=== PATIENT | female | born 1975 | race Two or more races ===

== ENCOUNTER 2023-12-25 07:19 | Inpatient (IN) | payer OTHER ==
[2023-12-23 10:28] LABS: HEMATOCRIT 37.4 % (36.0-45.00); HEMOGLOBIN 12.5 g/dL (12.0-15.00); MEAN CELL VOLUME 83.9 fL (80.00-100.00); MEAN CORPUSCULAR HEMOGLOBIN 28.1 pg (27.00-32.0); MEAN CORPUSCULAR HGB CONC 33.5 g/dl (32.0-36.0); PLATELET COUNT 243 K/uL (150-450); RED BLOOD COUNT 4.46 M/uL (4.00-6.00); RED CELL DISTRIBUTION WIDTH 14.1 % (11.5-14.5)
[2023-12-23 10:53] LABS: PH,URINE 6.5 (5.0-8.0); URINE APPEARANCE Clear; URINE BILIRRUBIN Negative (NEGATIVE); URINE BLOOD Negative; URINE COLOR Yellow; URINE GLUCOSE Negative (NEGATIVE); URINE LEUKOCYTE Negative; URINE NITRATE Negative; URINE PROTEIN Negative (NEGATIVE); URINE UROBILINOGEN 0.2 E.U./dl
[2023-12-23 10:54] LABS: URINE EPITHELIAL CELLS 10.3 uL (0.0-38.8); URINE RBC 9.9 uL (0.0-20.8)
[2023-12-23 11:03] LABS: INR 1.04; PARTIAL THROMBOPLASTIN TIME 31.2 SECONDS (22.0-34.0); PROTHROMBIN TIME 10.9 SECONDS (9.0-11.5)
[2023-12-23 11:12] LABS: URINE WBC 0 uL (0.0-23.2)
[2023-12-23 11:59] LABS: CREATININE SERUM 0.49 mg/dL (0.55-1.02); GFR 135.37
[2023-12-23 12:00] LABS: ALBUMIN 3.8 gm/dL (3.4-5.0); BILIRUBIN TOTAL 0.91 mg/dL (0.3-1.2); CALCIUM 9.1 mg/dL (8.5-10.1); GLOBULINA 4.6 G/DL (2.4-3.5); POTASSIUM 3.92 mEq/L (3.5-5.1); TOTAL PROTEIN 8.4 gm/dL (6.4-8.2)
[~2023-12-25] VITALS: Ht 167.6 cm; Wt 78.0 kg
[~2023-12-25 07:19] MED LIST: RESTORIL30 M1 PO
[2023-12-25 16:56] LABS: HEMATOCRIT 35.5 % (36.0-45.00); HEMOGLOBIN 11.9 g/dL (12.0-15.00); MEAN CELL VOLUME 83.4 fL (80.00-100.00); MEAN CORPUSCULAR HGB CONC 33.5 g/dl (32.0-36.0); PLATELET COUNT 237 K/uL (150-450); RED BLOOD COUNT 4.26 M/uL (4.00-6.00); RED CELL DISTRIBUTION WIDTH 14.1 % (11.5-14.5)
[2023-12-25 17:17] LABS: CALCIUM 8.6 mg/dL (8.5-10.1); CREATININE SERUM 0.57 mg/dL (0.55-1.02); GFR 113.69; POTASSIUM 3.74 mEq/L (3.5-5.1)
[2023-12-26 03:33] LABS: HEMATOCRIT 32.3 % (36.0-45.00); MEAN CELL VOLUME 84.7 fL (80.00-100.00); MEAN CORPUSCULAR HEMOGLOBIN 28.8 pg (27.00-32.0); PLATELET COUNT 218 K/uL (150-450); RED BLOOD COUNT 3.81 M/uL (4.00-6.00)
[2023-12-26 04:26] LABS: CALCIUM 8.3 mg/dL (8.5-10.1); CREATININE SERUM 0.47 mg/dL (0.55-1.02); GFR 142.04; POTASSIUM 3.85 mEq/L (3.5-5.1)
[2023-12-26] MEDS ORDERED: FLUMAZENIL0.1 MG/1 M (08:13)
[2023-12-26] MEDS ORDERED: DULOXETINE HCL30 MG (08:13)
[2023-12-26] MEDS ORDERED: CLONAZEPAM0.5 MG (08:13)
== END 2023-12-26 11:03 | disposition home or self-care (01) | DRG 743 ==
LOC: CIR.AMB 07:19 → OB/GYN 16:32
PROVIDERS: ADMIT Obstetrics & Gynecology; ATTEND Obstetrics & Gynecology
PROC: 0UT04ZZ Resection of Right Ovary, Percutaneous Endoscopic Approach (ICD-10-PCS; 2023-12-25)
PROC: 0DNE4ZZ Release Large Intestine, Percutaneous Endoscopic Approach (ICD-10-PCS; 2023-12-25)
PROC: 0UN04ZZ Release Right Ovary, Percutaneous Endoscopic Approach (ICD-10-PCS; 2023-12-25)
PROC: 0UN54ZZ Release Right Fallopian Tube, Percutaneous Endoscopic Approach (ICD-10-PCS; 2023-12-25)
PROC: 0DNW4ZZ Release Peritoneum, Percutaneous Endoscopic Approach (ICD-10-PCS; 2023-12-25)
PROC: 0UT54ZZ Resection of Right Fallopian Tube, Percutaneous Endoscopic Approach (ICD-10-PCS; principal; 2023-12-25 08:15)
DX: D27.0 Benign neoplasm of right ovary (principal); N73.6 Female pelvic peritoneal adhesions (postinfective); Z20.822 Contact with and (suspected) exposure to COVID-19